=== PATIENT | male | born 1955 | race Caucasian/White ===

== ENCOUNTER 2016-12-14 11:27 | Observation (INO) | payer OTHER ==
[2016-12-14] VITALS (7 sets, daily range): BP systolic 112–178; BP diastolic 64–99; PULSE 74–100; RESP 12–19; O2SAT 95–100
[~2016-12-14] VITALS: Ht 180.3 cm; Wt 94.7 kg
[~2016-12-14 11:27] MED LIST: ASCO100089 PO; ASPI-973 PO; AZEL50GE5 TP; CA/D1TAB7 PO; CLOB15CR3 TOP; DOXY-232 PO; ECON15CR10 TOP; MELA3TAB35 PO; SIMV40TA5 PO; [UNRECOGNIZED DRUG - CODE] TP
--- NOTE | 2016-12-14 11:46 | ED.REPORT ---
HPI-Stroke / CVA Dec 14, 2016 ED Provider: Abraham Lopes MD 61 y/o male on Aspirin with a hx of CAD, KS (post stent placement) and sleep apnea presents to the ED complaining of confusion, onset 4 days ago. The pt states he can not properly recall the last few days and has been having problems with his memory in general. He can't recall passwords, conversations and recent events, which is all new. He states he had a "brain chey" this morning. As per the pt's , the pt is at 8/10 of his baseline. She states he has not been complaining of dizziness and weakness and had a negative FAST test at home. He also denies headache, vision change, dysphasia, dysphagia, extremity numbness and tingling, abdominal pain, dysuria, vomit, nausea and chest pain. He has not started any new medications. The pt also complains of high blood pressure and fatigue. Nursing Notes Stated Complaint: POSS STROKE Chief Complaint: Neuro Symptoms/ Deficits Nursing Notes Reviewed: Yes Allergies: Coded Allergies: zolpidem tartrate (Verified Allergy, Unknown, HALLUCINATIONS, 12/14/16) Scheduled Ascorbic Acid (Vitamin C) 1,000 Mg Tab.chew 1,000 MG PO DAILY (Reported) Aspirin (Aspirin) 81 Mg Tablet 81 MG PO BID (Reported) Azelaic Acid (Finacea) 50 Gm Gel..gram. 50 GM TP BID (Reported) Clobetasol Propionate/Emoll (Clobetasol Emollient 0.05% Crm) 15 Gm Cream..g. 1 APPL TOP BID (Reported) Doxycycline Monohyd (Doxycycline Monohyd) 100 Mg Tablet 100 MG PO BID (Reported ) Melatonin (Melatonin) 300 Mcg Tablet 300 MCG PO HS (Reported) Simvastatin (Simvastatin) 40 Mg Tablet 40 MG PO HS (Reported) Miscellaneous Medications Ca/D3/Mag/Zinc/Perry/Bayron/Mgbor (Caltrate 600+D3+Min Chew Tab) 1 Each Tab.chew 3 EACH PO (Reported) General Time Seen by Provider: 11:49 Chief Complaint Confusion Hx Obtained From: Patient, Spouse Arrived By: Walk-in Time last known well 4 days ago Sudden in Onset?: Yes Symptom Duration: Since onset Progression Since Onset: Gradually improving Severity: Current: No pain currently Severity: Maximum: No pain Recent Healthcare: No recent doctor visit Similar Sx Previous: No Risk Factors NIH Stroke Scale Level of Consciousness: Alert and responsive (0) Ask Month & Age: Both questions right (0) Open/Close Eyes/Hand [employer]: Performs both tasks (0) Horizontal EO Movements: None (0) Visual [place]: No visual loss (0) Facial Palsy: Normal symmetry (0) Right Arm Motor Drift (10s): No drift 10 sec (0) Left Arm Motor Drift (10s): No drift 10 sec (0) Right Leg Motor Drift (5s): No drift 5 sec (0) Left Leg Motor Drift (5s): No drift 5 sec (0) Limb Ataxia FNF/Heel-Bennett: No ataxia (0) Sensation (Arms/Legs/Face): No sensory loss (0) Language Aphasia: No aphasia, normal (0) Dysarthria: No dysarthria, normal (0) Extinction/Inattention: No exctinct/inattent (0) NIHSS Score: 0 Time NIHSS Performed: 11:51 Date NIHSS Performed: Dec 14, 2016 Past Medical History Past Medical History Notes: Code status: Full code Past Medical History kidney cancer (2010) - s/p surgery (was intubated for 2 weeks) KS (2009) CAD Past Surgical History Kideny surgery cardiac stent Smoking History Never Smoker Social History Alcohol Use: Denies alcohol use Other Social History: Good social support, Ambulatory Status Independent Review of Systems Reports: memory problems Constitutional: Reports: Fatigue Cardiovascular: Denies: Chest pain GI: Denies: Abdominal pain, Dysphagia, Nausea, Vomiting Neurologic: Reports: Confusion, Denies: Dizziness, Headache, Numbness, Slurred speech, Unable to speak, Vision change Complete sys rev & neg: except as marked. Male: Denies Dysuria Physical Exam Initial Vital Signs Vital Signs (First) Date Time Temp Pulse Resp B/P Pulse Ox O2 Delivery O2 Flow Rate FiO2 12/14/16 11:30 36.6 100 18 178/99 100 Room Air Initial VS: Reviewed Abdomen / GI: Soft, Non-tender Extremities: Vascular intact, Neuro intact, No swelling, No tenderness Skin: Warm, Dry, No cyanosis General/Constitutional: Awake, Alert, No acute distress, Cooperative Head / Eyes: Atraumatic, PERRL, EOMI Neck: Atraumatic, Supple, Full range of motion Respiratory / Chest: Atraumatic, Breath sounds NL, Breath sounds = bilat, No respiratory distress, No rales, No rhonchi, No wheezing Cardiovascular: Heart rate NL, Regular rhythm, Heart sounds NL, No gallop, No murmurs, No rubs Neurologic: Oriented X3, Speech NL, No motor deficits, No sensory deficits, CN II - XII intact Interpretation & Diagnostics Lab Results Interpretation Result Diagram: 12/14/16 1208 12/14/16 1208 Test 12/14/16 12:08 12/14/16 14:15 White Blood Count 11.1th/mm3 (3.8-10.1) Red Blood Count 5.61mil/mm3 (4.40-5.80) Hemoglobin 16.8g/dL (13.8-17.2) Hematocrit 46.7% (41.0-50.0) Mean Corpuscular Volume 83.2fL (81-100) Mean Corpuscular Hemoglobin 29.9pg (27.0-35.0) Mean Corpuscular Hemoglobin Concent 36.0% (32.0-37.0) Red Cell Distribution Width 14.3% (12.3-15.4) Platelet Count 209bil/L (150-400) Neutrophils (%) (Auto) 79.9% (40-74) Lymphocytes (%) (Auto) 8.4% (14-46) Monocytes (%) (Auto) 11.2% (4-12) Eosinophils (%) (Auto) 0.2% (0-5) Basophils (%) (Auto) 0.1% (0-3) Prothrombin Time 11.0sec (8.1-12.5) Prothromb Time International Ratio 1.03ratio Sodium Level 137mEq/L (134-144) Potassium Level 4.1mEq/L (3.5-5.2) Chloride Level 99mEq/L (97-108) Carbon Dioxide Level 23mmol/L (18-29) Blood Urea Nitrogen 16mg/dL (8-27) Creatinine 1.02mg/dL (0.76-1.27) Estimat Glomerular Filtration Rate 79mL/min (>59) Glucose Level 120mg/dL (60-99) Calcium Level 9.5mg/dL (8.5-10.1) Total Bilirubin 1.0mg/dL (0.0-1.2) Aspartate Amino Transf (AST/SGOT) 17U/L (0-50) Alanine Aminotransferase (ALT/SGPT) 23U/L (0-44) Alkaline Phosphatase 85U/L (25-160) Troponin T < 0.010ug/L (0.0-0.011) Total Protein 7.4g/dL (6.4-8.4) Albumin 4.5g/dL (3.4-5.0) Hold Otero Top Tube Received (Received) Urine Color Straw (YELLOW) Urine Appearance Hazy (CLEAR,HAZY) Urine pH 6.0 (5.0-8.0) Urine Specific Valentine 1.005 (1.003-1.035) Urine Protein Negativemg/dL (NEG,TRACE) Urine Glucose (UA) Negativemg/dL (NEGATIVE) Urine Ketones Negativemg/dL (NEGATIVE) Urine Occult Blood Negative (NEGATIVE) Urine Nitrite Negative (NEGATIVE) Urine Bilirubin Negative (NEGATIVE) Urine Urobilinogen Normalmg/dL (NORMAL) Urine Leukocyte Esterase Negative (NEGATIVE) Urine RBC 0-2/hpf (0-2) Urine WBC 0-5/hpf (0-5) Urine Epithelial Cells Occasional/hpf (NONE-MOD) Urine Crystals None seen (NONE SEEN) Urine Bacteria None/hpf (NONE-FEW) Urine Hyaline Casts None/lpf (NONE) Urine Granular Casts None seen (NONE SEEN) Urine Waxy Casts None seen (NONE SEEN) Urine Red Blood Cell Casts None seen (NONE SEEN) Urine White Blood Cell Casts None seen (NONE SEEN) Urine Mucus None seen (None Seen) Urine Trichomonas None seen (NONE SEEN) Urine Yeast None (NONE SEEN) Urinalysis Comment None Urine Culture Reflexed Not indicated ECG Interpretation ECG Interpretation: Normal sinus rhtyhm. Rate 88. LAD, consider left anterior fascicular block. Time: 12:07 Interpreted by: ED physician X-Ray Chest Interpretation Chest Xray Interpretation: IMPRESSION: No acute cardiopulmonary process is evident. Dictated by: Kash Veronica M.D. on 12/14/2016 at 11:47 Approved by: Kash Veronica M.D. on 12/14/2016 at 11:49 View: Portable, 1 view Interpretation / Wet Read by: Interpret - Radiologist CT Head Interpretation IMPRESSION: 1. No acute intracranial process. 2. Mild atrophy and chronic microvascular ischemic changes. Dictated by: Faiza Bar M.D. on 12/14/2016 at 12:23 Approved by: Faiza Bar M.D. on 12/14/2016 at 12:24 Study: Head CT no contrast Interpretation / Wet Read by: Interpret - Radiologist Re-Eval/Medical Decision Med Decision/Clinical Course 61-year-old male history of CAD, KS presenting with altered mental status times several days. He reports being confused and forgetful last couple days. It is intermittent. He is back to his baseline now. He denies any other neurological deficits. His reports he has forgotten conversations which is not like him. No other symptoms. His workup is negative. His CT scan is normal. Cannot rule out TIAs. Will be admitted for altered mental status workup. Re-Evaluation/Progress : Time of Eval: 14:55 Patient Status: Condition improved Re-Evaluation/Progress Note: Rechecked pt. Discussed lab results, imaging results, diagnosis and options for discharge or admit. The pt wishes to be admited for further evaluation. Pt understands and agrees with the plan. All questions addressed. Consultation : Referral / Consult Name: Aung Silva MD Consulted With: Hospitalist Call Returned at: 16:22 Advertising Dispatch Clerk: Will see patient, Agrees with eval, Agrees with plan, Accepts admit Counseled Regarding: Diagnosis, Lab results, Need for admission Patient Discharge & Departure Impression: Primary Impression: Altered mental status Disposition: ADMITTED TO HOSPITAL Discharge Condition All VS Reviewed: Yes Referrals: Amira Melvin MD (PCP) Crit Care Except Billable Proc Services Performed: Patient management by me, Time spent at bedside, Reviewing test results, Reviewing imaging, Discussing patient care, Documentation in record, Time with fam/surrogate Scribe Attestation Portions of this note were transcribed by Humaira Bradshaw. I, , personally performed the history, physical exam and medical decision- making;I reviewed and confirmed the accuracy of the information in the transcribed note. Signed by Iliana Philip. 12/14/16 16:22 copies to: Amira Melvin MD, Ben M MD Dec 14, 2016 11:46 Humaira Bradshaw Dec 14, 2016 12:01
[2016-12-14 12:17] LABS: BASOPHILS % (AUTO) 0.1 % (0-3); EOSINOPHILS % (AUTO) 0.2 % (0-5); MONOCYTES % (AUTO) 11.2 % (4-12); Mean Corpuscular Hemoglobin 29.9 pg (27.0-35.0); Mean Corpuscular Volume 83.2 fL (81-100); NEUTROPHILS % (AUTO) 79.9 % (40-74); Platelet Count 209 bil/L (150-400)
--- NOTE | 2016-12-14 12:25 | DRSVH ---
PROCEDURE: CT BRAIN WITHOUT CONTRAST ([id number]) INDICATIONS: altered mental status TECHNIQUE: Noncontrast 4.5 mm thick angled axial sections acquired from the foramen magnum to the vertex, with c oronal reformats. COMPARISON: None. FINDINGS: Image quality: Excellent. CSF spaces: Basal cisterns are patent. No extra-axial fluid collections. The ventricles are symmet arlene in size and shape. Brain: No intracranial bleeds or masses. There is cerebral volume loss for age, with resultant vent ricular and sulcal prominence. There are periventricular and deep white matter chronic small vessel ischemic changes. There is intracranial internal carotid artery atherosclerosis. Skull and face: Calvarium and visualized facial bones appear intact, without suspicious lesions. Sinuses: Visualized sinuses and mastoids are clear. IMPRESSION: 1. No acute intracranial process. 2. Mild atrophy and chronic microvascular ischemic changes. Dictated by: Faiza Bar M.D. on 12/14/2016 at 12:23 Approved by: Faiza Bar M.D. on 12/14/2016 at 12:24
[2016-12-14 12:37] LABS: INR 1.03 ratio
--- NOTE | 2016-12-14 12:51 | DRSVH ---
PROCEDURE: X-RAY CHEST ONE VIEW, PORTABLE ([id number]) INDICATIONS: altered mental status TECHNIQUE: One view of the chest was acquired. COMPARISON: [facility], , CHEST 2VW, 05/01/2012, 7:55. FINDINGS: Surgical changes and devices: None. Lungs and pleura: No pleural effusions or pneumothorax. Lungs are clear. Mediastinum: Mediastinal contours appear normal. Heart size is normal. Bones and chest wall: No suspicious bony lesions. Moderate dextroscoliosis of the thoracic spine is present. Overlying soft tissues appear unremarkable. IMPRESSION: No acute cardiopulmonary process is evident. Dictated by: Kash Veronica M.D. on 12/14/2016 at 11:47 Approved by: Kash Veronica M.D. on 12/14/2016 at 11:49
[2016-12-14 13:12] LABS: TROPONIN T < 0.010 ug/L (0.0-0.011)
[2016-12-14 15:34] LABS: APPEARANCE,URINE HAZY (CLEAR,HAZY); COLOR,URINE STRAW (YELLOW)
[2016-12-14 15:35] LABS: OCCULT BLOOD,URINE NEGATIVE (NEGATIVE); UROBILINOGEN,URINE NORMAL (NORMAL)
[2016-12-14] MEDS ORDERED: MELA300T PO (15:47)
[2016-12-14] MEDS ORDERED: Ondansetron 2 mg/mL 2 mL Inj IVPUSH PRN ×2 (16:25→18:45)
[2016-12-14] MEDS ORDERED: Alum-Mag Hydrox-Simeth 30 mL Suspension PO PRN ×2 (16:25→18:45)
[2016-12-14] MEDS ORDERED: Polyethylene Glycol (PEG) 17 Gm Powder PO PRN (18:45)
--- NOTE | 2016-12-14 18:55 | DRSVH ---
PROCEDURE: MRI BRAIN WITHOUT CONTRAST ([id number]) INDICATIONS: altered mental status TECHNIQUE: Non-contrast axial T1 spin echo, axial T2 fast spin echo, sagittal and axial FLAIR, coronal T2 fast s pin echo, axial gradient echo, axial diffusion and ADC through the brain. COMPARISON: None. FINDINGS: Image quality: Excellent. CSF spaces: Ventricles appear symmetric in size and shape. Basal cisterns are patent. No extra-axi al fluid collections. Brain: No intracranial bleeds or mass effects. There is cerebral volume loss for age. There are pe riventricular and deep white matter chronic small vessel ischemic changes. Brainstem appears normal. Diffusion-weighted images show no acute ischemic insults. No chronic ischemic insults. Normal int ravascular flow voids are present. Skull and face: Calvarial bone marrow is normal in signal. Orbits are normal. Sinuses: Sinuses and mastoids are clear. IMPRESSION: 1. No acute intracranial findings. 2. Mild findings likely associated with early microvascular ischemic change. Dictated by: Paz Black M.D. on 12/14/2016 at 18:52 Approved by: Paz Black M.D. on 12/14/2016 at 18:53
--- NOTE | 2016-12-14 19:04 | NUR ---
ADMIT Admitted a 61/M into room 3017 following report from DEZ Krishna RN at 1845. Pt arrived via lucien read without difficulty to bathroom. Pt A&Ox4, reports he feels back to baseline. Denies any pain/discomfort at this time. On RA, denies any SOB. at bedside. Pt introduced to staff, bed controls and call light. Bed in lowest, locked position and call light in reach.
--- NOTE | 2016-12-14 21:01 | PCM.HPMED ---
Subjective Date of Service Dec 14, 2016 Primary Provider: Admitting Physician: Aung Silva MD Primary Care Physician: Amira Melvin MD Attending Physician: Aung Silva MD Admit Status: From the Emergency Department, 23-Hour Observation Chief Complaint: memory decline/4 days History of Present Illness: 61 yo gentleman with PMH RIAN on CPAP ,h/o PR s/p stent,rosacea on chronic doxycycline came to ED due to new onset decline in memory and attention for the last 4 days. Patient states he went to work this morning and noted " a brain chey" .He was not able to remember any activity or anything from yesterday. he notified his boss he is not feeling well and came home. In retrospect he and his noted that patient has been very forgetful for the last 4 days which is very unusual for him. he forgot that he and his were supposed to take their grandchild to gymnastics. he even could not remember having that conversation in the first place. he was also not able to remember phone numbers of family members and phone pass codes briefly which is unusual for him.He also forgot to reply text messages to his which is unusual for him. 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 ED course : unremarkable vitals and exam,unremarkable labs and CT brain unremarkable . Admission requested for workup patient uses CPAP for RIAN for 4 yrs .uses CPAP consistently .He is not sure if there is leak and CPAP mask and equipment haven't been checked in years. notes that he has told her that he feels more tired in the last few days. during my conversation and exam I did not notice any remote memory deficit or cognitive issues .MMSE 30/30.patient was actually able to give details of past events and exact dates of past surgery and hospitalizations. no short term or intermediate memory deficit noted . Review of Systems: a comprehensive review of systems performed and pertinent positives and negatives included in HPI Allergies Coded Allergies: zolpidem tartrate (Verified Allergy, Unknown, HALLUCINATIONS, 12/14/16) Home Medications Ascorbic Acid (Vitamin C) 1,000 Mg Tab.chew 1,000 MG PO DAILY (Reported) Aspirin (Aspirin) 81 Mg Tablet 81 MG PO BID (Reported) Azelaic Acid (Finacea) 50 Gm Gel..gram. 50 GM TP BID (Reported) Clobetasol Propionate/Emoll (Clobetasol Emollient 0.05% Crm) 15 Gm Cream..g. 1 APPL TOP BID (Reported) Doxycycline Monohyd (Doxycycline Monohyd) 100 Mg Tablet 100 MG PO BID (Reported ) Melatonin (Melatonin) 300 Mcg Tablet 300 MCG PO HS (Reported) Simvastatin (Simvastatin) 40 Mg Tablet 40 MG PO HS (Reported) Miscellaneous Medications Ca/D3/Mag/Zinc/Perry/Bayron/Mgbor (Caltrate 600+D3+Min Chew Tab) 1 Each Tab.chew 3 EACH PO (Reported) PMH PR s/p stent 2009 .he was diagnosed incidentally with kidney cancer on same admission immediately following stent . He eventually underwent partial nephrectomy(he is not sure which side ) after months .surgery delayed due to stent on plavix Surgical History cardiac stent partial nephrectomy Family History dad alive at 92 no memory issue mom alive at 90 she has demetia onset in her late 80's no other family history of cognitive issues Social History Hx Alcohol Use: No Hx Substance Use: No Hx Tobacco Use: No Smoking Status: Never Smoker Exam Vital Signs Vital Sign - Last Date Time Temp Pulse Resp B/P Pulse Ox O2 Delivery O2 Flow Rate FiO2 12/14/16 19:49 37.0 74 18 134/74 97 Room Air Exam alert and oriented x3 pink conjunctive clear chest S1 and S2 well heard no murmur soft abdomen no CVAT alert and oriented ,MMSE 30/30,did not notice any memory or cognitive deficit on my exam,no sensory or motor deficit Lab and Diagnostics Result Diagram: 12/14/16 1208 12/14/16 1208 Assessment & Plan 61 yo gentleman with PMH RIAN on CPAP ,h/o PR s/p stent,rosacea on chronic doxycycline came to ED due to new onset decline in memory and attention for the last 4 days. # Altered mental status/acute memory deficit -suspect poor sleep quality due to suspected CPAP malfunction given he has complained of generalized weakness in the past few days.he is not sure if he feels less refreshed when he wakes up -memory deficit is very subtle if any on my eval -MRI brain requested [facility] given no other neuro deficit and patient on ASA and statin -RPR,TSH,vit b12,vit D,folate requested # CAD s/p stent -continue home ASA and statin # RIAN c/w CPAP observation status Full code copies to: Amira Melvin MD, Melaku MD Dec 14, 2016 21:01
[2016-12-15 05:08] VITALS: BP 126/79; PULSE 60; RESP 18; O2SAT 97
[2016-12-15 05:44] LABS: BASOPHILS % (AUTO) 0.3 % (0-3); EOSINOPHILS % (AUTO) 1.3 % (0-5); MONOCYTES % (AUTO) 12.9 % (4-12); Mean Corpuscular Hemoglobin 30.1 pg (27.0-35.0); Mean Corpuscular Volume 85.9 fL (81-100); NEUTROPHILS % (AUTO) 58.5 % (40-74); Platelet Count 179 bil/L (150-400)
[2016-12-15 05:58] LABS: ERYTHROCYTE SEDIMENTATION RATE 1 mm/hr (0-30)
[2016-12-15 06:00] VITALS: PULSE 80
--- NOTE | 2016-12-15 06:05 | NUR ---
Mentation Pt alert and oriented during the night. Able to answer questions and follow directions appropriately. No complaints of pain or discomfort. Denies SOB, n/v. Non slip socks and SBA for safety. Call light within reach, using appropriately. Frequent rounding in place. Pleasant and cooperative with care.
[2016-12-15 06:34] LABS: Magnesium 2.2 mg/dL (1.6-2.6)
[2016-12-15] MEDS ORDERED: Ascorbic Acid 500 mg Tablet PO SCH (08:30)
--- NOTE | 2016-12-15 11:23 | PCM.DIMED ---
Discharge Instructions Date of Service Dec 15, 2016 Dates of Hospitalization Dec 14, 2016 at 17:06 Discharge Diagnosis Discharge Diagnosis # Altered mental status/acute memory deficit -suspect poor sleep quality due to suspected CPAP malfunction given he has complained of generalized weakness in the past few days.TIA possible but unlikely. # CAD s/p stent # RIAN Diet Discharge Diet: Low fat, Low Sodium, Heart Healthy Activity Discharge Activity: No restrictions Call your provider Call your provider for: Fever or Chills, Shortness of breath, Bleeding, Chest pain, Vomitting, Excessive diarrhea, Weakness (unilateral) Patient Instructions Patient Instructions You were hospitalized due to acute memory impairment which seems to have improved now. MRI is negative for acute stroke. Microvascular changes seen. Please continue aspirin and cholesterol medication. Cause of your brief memory impairment remains unclear. It is possible you had poor sleep quality due to CPAP malfunction given you also had some generalized weakness. TIA possible but unlikely. Please follow-up with PCP in 1 week. You may also follow-up with a neurologist if symptoms recur.You had borderline abnormal thyroid function test( slightly low TSH at 0.113 but normal free T4) . Please get your thyroid function checked in 4-6 weeks. Follow-up Provider: Amira Melvin MD Follow-up with PCP in: 1 week Provider: Mina Dave MD Follow-up in: 2 weeks Aung Silva MD Dec 15, 2016 11:23
--- NOTE | 2016-12-15 11:43 | NUR ---
Discharge Patient given discharge orders. Patient IV removed fully intact and asymptomatic. Patient given medication list with written times of next dose due. Patient given informational packet. Patient given follow up instructions. in room at time of discharge.
--- NOTE | 2016-12-15 11:57 | NUR ---
Social Work: Screening/Discharge D: EMR reviewed. Per MD in AM multi-disciplinary rounds, pt is medically stable and is ready to discharge today. MD stated that pt has no SW discharge needs. Pt is a 61 y/o male Adrianna for altered mental status per H&P. Pt's insurance is [employer] and PCP is Amira Melvin MD. SW verified scanned copy of DPOA/advanced directive in EMR. Pt's DPOA is spouse, Rosemarie Cantrell ([phone]). SW placed T/C to spouse Tammi/DPOA and confirmed she will provide will provide transport home via POV today. Per MD in AM multi-disciplinary rounds, pt is medically stable not have any SW discharge needs. SW will continue to follow. A: Pt who is independent at baseline P: SW confirmed spouse Tammi will provide transport home via POV today. Per MD in AM multi-disciplinary rounds, pt is medically stable for discharge today and does not have any SW discharge needs. SW will continue to follow. GAB Rubio
--- NOTE | 2016-12-15 13:18 | PCM.DC.MED ---
Discharge Summary Date of Service Dec 15, 2016 Dates of Hospitalization Date of Hospital Admission Dec 14, 2016 at 17:06 Date of Discharge: Dec 15, 2016 Providers: Admitting Physician: Aung Silva MD Primary Care Physician: Amira Melvin MD Attending Physician: Aung Silva MD Diagnosis at Time of Discharge Diagnosis at Time of Discharge # Altered mental status/acute memory deficit -suspect poor sleep quality due to suspected CPAP malfunction given he has complained of generalized weakness in the past few days.TIA possible but unlikely. # CAD s/p stent # RIAN Consultations none Procedures ECG 12 Lead PROCEDURE: MRI BRAIN WITHOUT CONTRAST ([id number]) INDICATIONS: altered mental status TECHNIQUE: Non-contrast axial T1 spin echo, axial T2 fast spin echo, sagittal and axial FLAIR, coronal T2 fast spin echo, axial gradient echo, axial diffusion and ADC through the brain. COMPARISON: None. FINDINGS: Image quality: Excellent. CSF spaces: Ventricles appear symmetric in size and shape. Basal cisterns are patent. No extra-axial fluid collections. Brain: No intracranial bleeds or mass effects. There is cerebral volume loss for age. There are periventricular and deep white matter chronic small vessel ischemic changes. Brainstem appears normal. Diffusion-weighted images show no acute ischemic insults. No chronic ischemic insults. Normal intravascular flow voids are present. Skull and face: Calvarial bone marrow is normal in signal. Orbits are normal. Sinuses: Sinuses and mastoids are clear. IMPRESSION: 1. No acute intracranial findings. 2. Mild findings likely associated with early microvascular ischemic change. Dictated by: Paz Black M.D. on 12/14/2016 at 18:52 Brief History per HPI 61 yo gentleman with PMH RIAN on CPAP ,h/o [place] s/p stent,rosacea on chronic doxycycline came to ED due to new onset decline in memory and attention for the last 4 days. Patient states he went to work this morning and noted " a brain chey" .He was not able to remember any activity or anything from yesterday. he notified his boss he is not feeling well and came home. In retrospect he and his noted that patient has been very forgetful for the last 4 days which is very unusual for him. he forgot that he and his were supposed to take their grandchild to gymnastics. he even could not remember having that conversation in the first place. he was also not able to remember phone numbers of family members and phone pass codes briefly which is unusual for him.He also forgot to reply text messages to his which is unusual for him. 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 ED course : unremarkable vitals and exam,unremarkable labs and CT brain unremarkable . Admission requested for workup patient uses CPAP for RIAN for 4 yrs .uses CPAP consistently .He is not sure if there is leak and CPAP mask and equipment haven't been checked in years. notes that he has told her that he feels more tired in the last few days. during my conversation and exam I did not notice any remote memory deficit or cognitive issues .MMSE 30/30.patient was actually able to give details of past events and exact dates of past surgery and hospitalizations. no short term or intermediate memory deficit noted . Hospital Course 61 yo gentleman with PMH RIAN on CPAP ,h/o [place] s/p stent,rosacea on chronic doxycycline came to ED due to new onset decline in memory and attention for the last 4 days. # Altered mental status/acute memory impairment -suspect poor sleep quality due to suspected CPAP malfunction given he has complained of generalized weakness in the past few days.he is not sure if he feels less refreshed when he wakes up these days -memory deficit is very subtle if any on my eval -MRI brain microvascular changes -CVA/TIA unlikley given no other neuro deficit and patient on ASA and statin -RPR,,vit b12,vit D,folate requested. Results pending. Advised patient to follow-up results with PCP -Advised patient to see neurology if symptoms recur , patient states his memory is almost back to baseline but is curious what happened and wants to see a neurologist. Recommend to see # Subclinical hyperthyroidism -TSH slightly depressed 0.113, normal free T4 # CAD s/p stent -continue home ASA and statin # RIAN c/w CPAP Testosterone Condition on discharge stable Exam Vital Signs (Last) Date Time Temp Pulse Resp B/P Pulse Ox O2 Delivery O2 Flow Rate FiO2 12/15/16 06:00 80 12/15/16 05:08 36.8 18 126/79 97 Room Air Exam alert and oriented x3 pink conjunctive clear chest S1 and S2 well heard no murmur soft abdomen no CVAT alert and oriented ,MMSE 30/30,did not notice any memory or cognitive deficit on my exam,no sensory or motor deficit Test 12/14/16 12:08 12/14/16 14:15 12/15/16 05:25 Prothrombin Time 11.0sec (8.1-12.5) Prothromb Time International Ratio 1.03ratio Troponin T < 0.010ug/L (0.0-0.011) Hold Otero Top Tube Received (Received) Urine Color Straw (YELLOW) Urine Appearance Hazy (CLEAR,HAZY) Urine pH 6.0 (5.0-8.0) Urine Specific [place] 1.005 (1.003-1.035) Urine Protein Negativemg/dL (NEG,TRACE) Urine Glucose (UA) Negativemg/dL (NEGATIVE) Urine Ketones Negativemg/dL (NEGATIVE) Urine Occult Blood Negative (NEGATIVE) Urine Nitrite Negative (NEGATIVE) Urine Bilirubin Negative (NEGATIVE) Urine Urobilinogen Normalmg/dL (NORMAL) Urine Leukocyte Esterase Negative (NEGATIVE) Urine RBC 0-2/hpf (0-2) Urine WBC 0-5/hpf (0-5) Urine Epithelial Cells Occasional/hpf (NONE-MOD) Urine Crystals None seen (NONE SEEN) Urine Bacteria None/hpf (NONE-FEW) Urine Hyaline Casts None/lpf (NONE) Urine Granular Casts None seen (NONE SEEN) Urine Waxy Casts None seen (NONE SEEN) Urine Red Blood Cell Casts None seen (NONE SEEN) Urine White Blood Cell Casts None seen (NONE SEEN) Urine Mucus None seen (None Seen) Urine Trichomonas None seen (NONE SEEN) Urine Yeast None (NONE SEEN) Urinalysis Comment None Urine Culture Reflexed Not indicated White Blood Count 7.5th/mm3 (3.8-10.1) Red Blood Count 5.38mil/mm3 (4.40-5.80) Hemoglobin 16.2g/dL (13.8-17.2) Hematocrit 46.2% (41.0-50.0) Mean Corpuscular Volume 85.9fL (81-100) Mean Corpuscular Hemoglobin 30.1pg (27.0-35.0) Mean Corpuscular Hemoglobin Concent 35.1% (32.0-37.0) Red Cell Distribution Width 14.6% (12.3-15.4) Platelet Count 179bil/L (150-400) Neutrophils (%) (Auto) 58.5% (40-74) Lymphocytes (%) (Auto) 26.7% (14-46) Monocytes (%) (Auto) 12.9% (4-12) Eosinophils (%) (Auto) 1.3% (0-5) Basophils (%) (Auto) 0.3% (0-3) Erythrocyte Sedimentation Rate 1mm/hr (0-30) Sodium Level 140mEq/L (134-144) Potassium Level 4.5mEq/L (3.5-5.2) Chloride Level 102mEq/L (97-108) Carbon Dioxide Level 25mmol/L (18-29) Blood Urea Nitrogen 16mg/dL (8-27) Creatinine 1.01mg/dL (0.76-1.27) Estimat Glomerular Filtration Rate 80mL/min (>59) Glucose Level 99mg/dL (60-99) Calcium Level 9.6mg/dL (8.5-10.1) Magnesium Level 2.2mg/dL (1.6-2.6) Total Bilirubin 1.0mg/dL (0.0-1.2) Aspartate Amino Transf (AST/SGOT) 17U/L (0-50) Alanine Aminotransferase (ALT/SGPT) 21U/L (0-44) Alkaline Phosphatase 81U/L (25-160) Total Protein 6.6g/dL (6.4-8.4) Albumin 4.4g/dL (3.4-5.0) Thyroid Stimulating Hormone (TSH) 0.113uIU/mL (0.450-4.500) Free Thyroxine 1.59ng/dL (0.82-1.77) Discharge Medications Discharge Medications Ascorbic Acid (Vitamin C) 1,000 Mg Tab.chew 1,000 MG PO DAILY (Reported) Aspirin (Aspirin) 81 Mg Tablet 81 MG PO BID (Reported) Azelaic Acid (Finacea) 50 Gm Gel..gram. 50 GM TP BID (Reported) Clobetasol Propionate/Emoll (Clobetasol Emollient 0.05% Crm) 15 Gm Cream..g. 1 APPL TOP BID (Reported) Doxycycline Monohyd (Doxycycline Monohyd) 100 Mg Tablet 100 MG PO BID (Reported ) Melatonin (Melatonin) 300 Mcg Tablet 300 MCG PO HS (Reported) Simvastatin (Simvastatin) 40 Mg Tablet 40 MG PO HS (Reported) Miscellaneous Medications Ca/D3/Mag/Zinc/Perry/Bayron/Mgbor (Caltrate 600+D3+Min Chew Tab) 1 Each Tab.chew 3 EACH PO (Reported) Followup Plan Disposition: Home Discharge Diet: Low fat, Low Sodium, Heart Healthy Discharge Activity: No restrictions Patient Instructions You were hospitalized due to acute memory impairment which seems to have improved now. MRI is negative for acute stroke. Microvascular changes seen. Please continue aspirin and cholesterol medication. Cause of your brief memory impairment remains unclear. It is possible you had poor sleep quality due to CPAP malfunction given you also had some generalized weakness. TIA possible but unlikely. Please follow-up with PCP in 1 week. You may also follow-up with a neurologist if symptoms recur.You had borderline abnormal thyroid function test( slightly low TSH at 0.113 but normal free T4) . Please get your thyroid function checked in 4-6 weeks. Follow-up Provider: Amira Melvin MD Follow-up with PCP in: 1 week Provider: Mina Dave MD Follow-up in: 2 weeks copies to: Amira Melvin MD; Mina Dave MD, Melaku MD Dec 15, 2016 13:18
[2016-12-16 02:09] LABS: Vitamin D, 25-Hydroxy 17.3 ng/mL (30.0-100.0)
[2016-12-16 06:17] LABS: Vitamin B12 425 pg/mL (211-946)
== END 2016-12-15 11:35 | disposition home or self-care (01) ==
LOC: SED 11:27 → MPC 17:06
PROVIDERS: ADMIT Internal Medicine; ATTEND Internal Medicine
DX: R41.82 Altered mental status, unspecified (principal); R41.3 Other amnesia; G47.33 Obstructive sleep apnea (adult) (pediatric); I25.10 Atherosclerotic heart disease of native coronary artery without angina pectoris; I25.2 Old myocardial infarction; Z88.8 Allergy status to other drugs, medicaments and biological substances; Z85.528 Personal history of other malignant neoplasm of kidney; Z95.5 Presence of coronary angioplasty implant and graft; Z79.82 Long term (current) use of aspirin; Z90.5 Acquired absence of kidney